=== PATIENT | female | born 1990 | race African-American/Black ===

== ENCOUNTER 2020-04-16 11:02 | Emergency (ER) | payer MEDICAID ==
[~2020-04-16] VITALS: Ht 175.3 cm; Wt 153.6 kg
[~2020-04-16 11:02] MED LIST: NOCURR
[2020-04-16] MEDS ORDERED: PERTUSS(ACELL),DIPH,TET VAC/PF 0.5 ML VIAL IM ONE (11:45)
[2020-04-16] MEDS ORDERED: BACITRACIN 0.9 GM PACKET OINTMENT TP ONE (11:45)
[2020-04-16 12:17] VITALS: BP 136/74
== END 2020-04-16 12:26 | disposition home or self-care (01) ==
LOC: EMS 11:07
DX: T25.121A Burn of first degree of right foot, initial encounter (principal); T31.0 Burns involving less than 10% of body surface; X10.2XXA Contact with fats and cooking oils, initial encounter; Y93.89 Activity, other specified; Y92.89 Other specified places as the place of occurrence of the external cause; Y99.8 Other external cause status
CPT/HCPCS: 16020; 90471; 90715